=== PATIENT | female | born 1980 ===

== ENCOUNTER 2016-07-22 07:38 | Emergency (ER) | payer MEDICAID ==
[2016-07-22 07:47] VITALS: BP 161/100; PULSE 96; RESP 16; TEMP 99.1; O2SAT 98; BMI 52.2
--- NOTE | 2016-07-22 07:54 | ED PDOC ---
Arrival/HPI - General Chief Complaint: Female Genitourinary Time Seen by Provider: 07/22/16 07:43 Historian: Patient - History of Present Illness Narrative History of Present Illness (Text): 07/22/16 07:47 Jaquelin Herrera is a 35 year old female, occasional smoker & drinker, no drugs , who presents to the emergency department for persistent vaginal bleeding for the last 5 months. Patient reports her LNMP was in March and she has been having strange bleeding since. She reports she was seen at the OB 3 weeks ago, where blood and urine tests were done. She was given a "white pill" for 14 days which she just finished. Patient otherwise denies any fever, chills, abdominal pain, nausea, vomiting, diarrhea, vaginal discharge, urinary symptoms, back pain , or any other complaints. PMD: None reported. Associated Symptoms (Text): 07/22/16 08:06 Last normal menstrual period was in March of this year. She has had strange bleeding ever since then. She's been bleeding for the last month straight. She was seen by her DYE RANGE TENDER approximately 3 weeks ago. She had blood and urine testing done then. She was put on a medication for 14 days, but has continued to bleed. She is scheduled for an ultrasound next week. No abdominal pain nausea vomiting diarrhea constipation or GI bleeding. No vaginal discharge. No dysuria frequency urgency or hematuria. Fever or chills. No injury or trauma. No chest pain palpitations or dyspnea. No dizziness or lightheadedness. Past Medical History - Provider Review Nursing Documentation Reviewed: Yes - Infectious Disease Hx of Infectious Diseases: None - Tetanus Immunization Tetanus Immunization: Unknown - Past Medical History Past Medical History: No Previous - Psychiatric Hx Psychophysiologic Disorder: No Hx Depression: No Hx Emotional Abuse: No Hx Physical Abuse: No Hx Substance Use: No - Surgical History Hx Section: Yes Hx Cholecystectomy: Yes - Anesthesia Hx Anesthesia: Yes Hx Anesthesia Reactions: No Hx Malignant Hyperthermia: No - Suicidal Assessment Feels Threatened In Home Enviroment: No Family/Social History - Physician Review Nursing Documentation Reviewed: Yes Family/Social History: No Known Family HX Smoking Status: Light Smoker < 10 Cigarettes Daily Hx Alcohol Use: No Hx Substance Use: No Hx Substance Use Treatment: No Allergies/Home Meds Allergies/Adverse Reactions: Allergies No Known Allergies Allergy (Verified 07/22/16 07:47) Home Medications: Home Meds Medication Instructions Recorded Confirmed No Known Home Med 07/22/16 07/22/16 Review of Systems - Physician Review All systems were reviewed & negative as marked: Yes - Review of Systems Constitutional: Normal. absent: Fevers Respiratory: Normal. absent: SOB, Cough Cardiovascular: Normal. absent: Chest Pain Gastrointestinal: Normal. absent: Abdominal Pain, Diarrhea, Nausea, Vomiting Genitourinary Female: Vaginal Bleeding. absent: Dysuria, Frequency, Hematuria, Urine Output Changes, Vaginal Discharge Musculoskeletal: absent: Back Pain Skin: Normal Neurological: Normal Physical Exam Vital Signs Reviewed: Yes Vital Signs Temp Pulse Resp BP Pulse Ox 07/22/16 07:47 99.1 F 96 H 16 161/100 H 98 Temperature: Afebrile Blood Pressure: Hypertensive Pulse: Regular Respiratory Rate: Normal Appearance: Positive for: Well-Appearing, Non-Toxic, Comfortable, Other ( Morbidly Obese) Pain Distress: None Mental Status: Positive for: Alert and Oriented X 3 - Systems Exam Head: Present: Atraumatic, Normocephalic Pupils: Present: PERRL Extroacular Muscles: Present: EOMI Conjunctiva: Present: Normal Mouth: Present: Moist Mucous Membranes Neck: Present: Normal Range of Motion Respiratory/Chest: Present: Clear to Auscultation, Good Air Exchange. No: Respiratory Distress, Accessory Muscle Use Cardiovascular: Present: Regular Rate and Rhythm, Normal S1, S2. No: Murmurs Abdomen: Present: Normal Bowel Sounds. No: Tenderness, Distention, Peritoneal Signs Back: Present: Normal Inspection Upper Extremity: Present: Normal Inspection. No: Cyanosis, Edema Lower Extremity: Present: Normal Inspection. No: Edema Neurological: Present: GCS=15, CN II-XII Intact, Speech Normal Skin: Present: Warm, Dry, Normal Color. No: Rashes Psychiatric: Present: Alert, Oriented x 3, Normal Insight, Normal Concentration Medical Decision Making ED Course and Treatment: 07/22/16 07:47 Impression: 35 year old female complaining of vaginal bleeding for the last 5 months. Plan: -- Urinalysis -- Labs -- Reassess and disposition Prior Visits: Notes and results from previous visits were reviewed. Patient was last seen in the emergency department on 04/03/16 for left knee pain. Progress Notes: 07/22/16 08:53 HCG is negative. Hemoglobin is adequate. INR is normal. Discharge home to follow -up with [facility]. Ultrasound as already scheduled next week. Follow up in ER as needed - Lab Interpretations Lab Results: 07/22/16 08:12 Lab Results 07/22/16 08:15: Urine Color Light brown, Urine Appearance Cloudy, Urine pH 6.0, Ur Specific [place] 1.025, Urine Protein 30 H, Urine Glucose (UA) Negative, Urine Ketones Negative, Urine Blood Large H, Urine Nitrate Negative, Urine Bilirubin Negative, Urine Urobilinogen 0.2, Ur Leukocyte Esterase Negative, Urine RBC Tntc, Urine WBC 0 - 2, Ur Epithelial Cells 0 - 2, Urine Bacteria Few, Urine HCG, Qual Negative 07/22/16 08:12: WBC 11.1 H, RBC 4.39, Hgb 10.7 L, Hct 32.7 L, MCV 74.5 L, MCH 24.4 L, MCHC 32.7, RDW 14.8 H, Plt Count 498 H, MPV 8.6, Gran % 71.3 H, Lymph % (Auto) 20.2 L, [place] % (Auto) 7.0 H, Eos % (Auto) 1.1 L, Baso % (Auto) 0.4, Gran # 7.90 H, Lymph # 2.2, [place] # 0.8 H, Eos # 0.1, Baso # 0.04 I have reviewed the lab results: Yes - Scribe Statement The provider has reviewed the documentation as recorded by the Kennedy Go Provider Attestation: All medical record entries made by the Jannaibkym were at my direction and personally dictated by me. I have reviewed the chart and agree that the record accurately reflects my personal performance of the history, physical exam, medical decision making, and the department course for this patient. I have also personally directed, reviewed, and agree with the discharge instructions and disposition. Disposition/Present on Arrival - Present on Arrival Any Indicators Present on Arrival: No History of DVT/PE: No History of Uncontrolled Diabetes: No Urinary Catheter: No History of Decub. Ulcer: No History Surgical Site Infection Following: None - Disposition Have Diagnosis and Disposition been Completed?: Yes Diagnosis: Menometrorrhagia Disposition: HOME/ ROUTINE Disposition Time: 08:54 Patient Plan: Discharge Condition: GOOD Discharge Instructions (ExitCare): Menorrhagia (ED) Additional Instructions: Follow-up with [facility]. Keep ultrasound appointment. Follow up in ER as needed.
[2016-07-22 08:25] LABS: URINE BILIRUBIN NEGATIVE (NEGATIVE); URINE BLOOD LARGE (NEGATIVE); URINE GLUCOSE (UA) NEGATIVE (NEGATIVE); URINE KETONE NEGATIVE (NEGATIVE); URINE LEUKOCYTE ESTERASE NEGATIVE Leu/uL (NEGATIVE); URINE PROTEIN 30 mg/dL (<30 mg/dL); URINE UROBILINOGEN 0.2 E.U./dL (<1 E.U./dL)
[2016-07-22 08:27] LABS: ADD MANUAL DIFF? NO
[2016-07-22 08:28] LABS: URINE APPEARANCE CLOUDY (CLEAR); URINE COLOR LIGHT BROWN (YELLOW)
[2016-07-22 08:29] LABS: BASO # 0.04 K/mm3 (0.0-2.0); BASO % 0.4 % (0.0-3.0); EOS # 0.1 (0.0-0.7); EOS % 1.1 % (1.5-5.0); GRAN % 71.3 % (50.0-68.0); HEMATOCRIT 32.7 % (36.0-48.0); LYMPH # 2.2 (1.2-3.4); LYMPH % 20.2 % (22.0-35.0); MEAN CELL VOLUME 74.5 fL (80.0-105.0); MEAN CORPUSCULAR HEMOGLOBIN 24.4 pg (25.0-35.0); MEAN CORPUSCULAR HGB CONC 32.7 g/dl (31.0-37.0); MEAN PLATELET VOLUME 8.6 fl (7.0-11.0); MONO # 0.8 (0.1-0.6); PLATELET COUNT 498 10^3/uL (120.0-450.0); RED CELL DISTRIBUTION WIDTH 14.8 % (11.5-14.5); WHITE BLOOD COUNT 11.1 10^3/ul (4.5-11.0)
[2016-07-22 08:30] LABS: URINE BACTERIA FEW (NEG); URINE EPITHELIAL CELLS 0 - 2 /hpf (0-5); URINE RBC TNTC /hpf (0-2); URINE WBC 0 - 2 /hpf (0-6)
[2016-07-22 08:39] LABS: INR 0.94 (0.93-1.08); PARTIAL THROMBOPLASTIN TIME 29.1 Seconds (23.7-30.8)
== END 2016-07-22 09:07 | disposition home or self-care (01) ==
LOC: ED 07:38
DX: N92.1 Excessive and frequent menstruation with irregular cycle (principal)

== ENCOUNTER 2017-03-02 06:01 | Emergency (ER) | payer MEDICAID ==
[2017-03-02 06:56] VITALS: BMI 51.3
[2017-03-02 07:03] VITALS: O2SAT 99
[2017-03-02] MEDS ORDERED: Lidocaine 1%/Epinephrine 1:100000 30 ml vial IJ STA (07:30)
--- NOTE | 2017-03-02 07:30 | ED PDOC ---
Arrival/HPI - General Chief Complaint: Female Genitourinary Time Seen by Provider: 03/02/17 07:27 Historian: Patient - History of Present Illness Narrative History of Present Illness (Text): 03/02/17 07:27 A 36 year old female, who denies any past medical history, presents to the emergency department complaining of an abscess on her labia for 2 days. Patient reports her pain has worsened since. She notes experiencing similar symptoms prior. Patient denies fever or any other complaints. Time/Duration: Other ( 2 days) Symptom Course: Intermittent Quality: Other Context: Home Past Medical History - Provider Review Nursing Documentation Reviewed: Yes - Infectious Disease Hx of Infectious Diseases: None - Tetanus Immunization Tetanus Immunization: Unknown - Past Medical History Past Medical History: No Previous - Cardiac Hx Cardiac Disorders: No - Pulmonary Hx Respiratory Disorders: No - Neurological Hx Neurological Disorder: No - HEENT Hx HEENT Disorder: No - Renal Hx Renal Disorder: No - Endocrine/Metabolic Hx Endocrine Disorders: No - Hematological/Oncological Hx Blood Disorders: No - Integumentary Hx Dermatological Disorder: No - Musculoskeletal/Rheumatological Hx Musculoskeletal Disorders: No - Gastrointestinal Hx Gastrointestinal Disorders: No - Genitourinary/Gynecological Hx Genitourinary Disorders: No - Psychiatric Hx Psychophysiologic Disorder: No Hx Depression: No Hx Emotional Abuse: No Hx Physical Abuse: No Hx Substance Use: No - Surgical History Hx Section: Yes Hx Cholecystectomy: Yes - Anesthesia Hx Anesthesia: Yes Hx Anesthesia Reactions: No Hx Malignant Hyperthermia: No - Suicidal Assessment Feels Threatened In Home Enviroment: No Family/Social History - Physician Review Nursing Documentation Reviewed: Yes Family/Social History: No Known Family HX Smoking Status: Light Smoker < 10 Cigarettes Daily Hx Alcohol Use: No Hx Substance Use: No Hx Substance Use Treatment: No Allergies/Home Meds Allergies/Adverse Reactions: Allergies No Known Allergies Allergy (Verified 03/02/17 06:56) Review of Systems - Physician Review All systems were reviewed & negative as marked: Yes - Review of Systems Constitutional: absent: Fevers Genitourinary Female: Other (Abscess on labia) Physical Exam Vital Signs Reviewed: Yes Vital Signs Temp Pulse Resp BP Pulse Ox 03/02/17 09:39 98 F 75 20 131/72 99 03/02/17 08:54 97.8 F 03/02/17 07:02 98.4 F 92 H 18 154/83 H 99 Temperature: Afebrile Blood Pressure: Hypertensive Pulse: Tachycardic Respiratory Rate: Normal Appearance: Positive for: Well-Appearing, Non-Toxic, Comfortable Pain Distress: None Mental Status: Positive for: Alert and Oriented X 3 - Systems Exam Head: Present: Atraumatic, Normocephalic Pupils: Present: PERRL Extroacular Muscles: Present: EOMI Conjunctiva: Present: Normal Genitourinary/Pelvic Exam: Present: Other (2 cm right labial abscess with small amount of purulent drainage) Neurological: Present: GCS=15, CN II-XII Intact, Speech Normal Skin: Present: Warm, Dry, Normal Color. No: Rashes Psychiatric: Present: Alert, Oriented x 3, Normal Insight, Normal Concentration Medical Decision Making ED Course and Treatment: 03/02/17 08:59 Procedure: Incision & Drainage Performed by the emergency provider, chaperoned by scribe Indication: Abscess Location: Right labia Preparation: The area was prepped and draped in the usual sterile fashion and was cleansed. Local infiltration of Lidocaine 1% with epinephrine was used for anesthesia. Procedure: The most fluctuant portion of the abscess was incised with a #11 scalpel. Approximately 3 mL of purulent drainage was obtained. Post-Procedure: On exam the abscess is notably less fluctuant. The patient tolerated the procedure well, and there were no complications. Cultured: Yes I have discussed the plan with the patient, who expresses understanding. Patient in agreement with plan to be discharged home. Patient is stable for discharge. Patient was instructed to follow up with obgyn or return if symptoms worsen or new concerning symptoms arise. - Lab Interpretations Microbiology Results: Microbiology Results 03/02/17 09:00 Abscess - Abscess Gram Stain - Preliminary 03/02/17 09:00 Abscess - Abscess Wound Culture - Preliminary NO GROWTH AFTER 24 HOURS - Medication Orders Current Medication Orders: Discontinued Medications Acetaminophen (Tylenol 325mg Tab) 975 mg PO STAT STA Stop: 03/02/17 07:31 Last Admin: 03/02/17 08:54 Dose: 975 mg MAR Pain/Vitals Document 03/02/17 08:54 GMI (Rec: 03/02/17 08:55 GMI [id number]) Pain Reassessment Is This A Pain ReAssessment? Yes Sleep Is patient sleeping during reassessment? No Presence of Pain Presence of Pain Yes Pain Scale Used Pain Scale Used Numeric Location Pain Location Body Site perineum Description Constant Pressure Sharp Intensity 8 Scale Used Numeric Pain Behavior Facial Grimacing Vitals Temperature (97.6 F-99.6 F) 97.8 F Temperature Source Oral Ibuprofen (Motrin Tab) 800 mg PO STAT STA Stop: 03/02/17 07:31 Last Admin: 03/02/17 08:54 Dose: 800 mg Lidocaine/Epinephrine (Lidocaine 1%/Epinephrine 1:287441 30 Ml) 20 ml IJ STAT STA Stop: 03/02/17 07:31 Last Admin: 03/02/17 08:55 Dose: 3 ml - Scribe Statement The provider has reviewed the documentation as recorded by the Jannaibkym Rivera Provider Scribe Attestation: All medical record entries made by the Scribe were at my direction and personally dictated by me. I have reviewed the chart and agree that the record accurately reflects my personal performance of the history, physical exam, medical decision making, and the department course for this patient. I have also personally directed, reviewed, and agree with the discharge instructions and disposition. Disposition/Present on Arrival - Present on Arrival Any Indicators Present on Arrival: No History of DVT/PE: No History of Uncontrolled Diabetes: No Urinary Catheter: No History of Decub. Ulcer: No History Surgical Site Infection Following: None - Disposition Have Diagnosis and Disposition been Completed?: Yes Diagnosis: Labial abscess Disposition: HOME/ ROUTINE Disposition Time: 08:59 Condition: GOOD Discharge Instructions (ExitCare): Abscess Incision and Drainage (ED), Bartholin Cyst (ED) Additional Instructions: Please follow up with your OBGYN doctor. Keep the wound clean with soap and water. Return to the ER for any worsening symptoms, fever, or for any other concerns. Prescriptions: Sulfamethoxazole/Trimethoprim [Bactrim DS 800 mg-160 mg] 1 tab PO BID #10 tab Forms: [facility] (Paraguayan), WORK NOTE
[2017-03-02 09:39] VITALS: BP 131/72; PULSE 75; RESP 20; TEMP 98
== END 2017-03-02 09:41 | disposition home or self-care (01) ==
LOC: ED 06:01
DX: N76.4 Abscess of vulva (principal)

== ENCOUNTER 2018-01-23 06:32 | Emergency (ER) | payer MEDICAID ==
[2018-01-23 06:41] VITALS: BMI 53.1
[2018-01-23] MEDS ORDERED: Sodium Chloride 0.9% 1,000 ML IV STA ×2 (07:49→09:58)
[2018-01-23] MEDS ORDERED: Alum-Mag Hydrox-Simethicone Susp (30 mL) PO STA (07:49)
[2018-01-23] MEDS ORDERED: Atrop/Hyosc/Scopal/PB Elixir (120 ml) PO STA (07:50)
--- NOTE | 2018-01-23 07:58 | ED PDOC ---
Arrival/HPI - General Chief Complaint: Abdominal Pain Historian: Patient - History of Present Illness Narrative History of Present Illness (Text): 01/23/18 07:54 37 year old female w/ PMH of cholecystectomy, presents to the emergency department with lower abdominal pain with associated nausea since this morning. Patient states she woke up & felt she needed to release her bowels. She states she had non-bloody watery diarrhea with worsening of her abdominal pain suddenly worsened upon evacuation of her bowels. Patient denies any fevers, chills, vomiting, back pain, neck pain, urinary/bowel changes, vaginal bleeding/discharge, or any other complaint. Time/Duration: 1-3 hours Symptom Course: Unchanged Severity Level: Moderate Context: Home Past Medical History - Provider Review Nursing Documentation Reviewed: Yes - Travel History Have you recently traveled outside [place] w/in the past 3 mons?: No - Infectious Disease Hx of Infectious Diseases: None - Tetanus Immunization Tetanus Immunization: Unknown - Past Medical History Past Medical History: No Previous - Cardiac Hx Cardiac Disorders: No - Pulmonary Hx Respiratory Disorders: No - Neurological Hx Neurological Disorder: No - HEENT Hx HEENT Disorder: No - Renal Hx Renal Disorder: No - Endocrine/Metabolic Hx Endocrine Disorders: No - Hematological/Oncological Hx Blood Disorders: No - Integumentary Hx Dermatological Disorder: No - Musculoskeletal/Rheumatological Hx Musculoskeletal Disorders: No - Gastrointestinal Hx Gastrointestinal Disorders: No - Genitourinary/Gynecological Hx Genitourinary Disorders: No - Psychiatric Hx Psychophysiologic Disorder: No Hx Depression: No Hx Emotional Abuse: No Hx Physical Abuse: No Hx Substance Use: No - Surgical History Hx Section: Yes (x2) Hx Cholecystectomy: Yes - Anesthesia Hx Anesthesia: Yes Hx Anesthesia Reactions: No Hx Malignant Hyperthermia: No - Suicidal Assessment Feels Threatened In Home Enviroment: No Family/Social History - Physician Review Nursing Documentation Reviewed: Yes Family/Social History: No Known Family HX Smoking Status: Light Smoker < 10 Cigarettes Daily Hx Alcohol Use: No Hx Substance Use: No Hx Substance Use Treatment: No Allergies/Home Meds Allergies/Adverse Reactions: Allergies No Known Allergies Allergy (Verified 01/24/18 06:17) Review of Systems - Physician Review All systems were reviewed & negative as marked: Yes - Review of Systems Constitutional: absent: Fevers, Night Sweats Gastrointestinal: Abdominal Pain, Stool Changes, Diarrhea, Nausea. absent: Constipation, Vomiting Genitourinary Female: absent: Urine Output Changes, Vaginal Bleeding, Vaginal Discharge Musculoskeletal: absent: Back Pain, Neck Pain Physical Exam Vital Signs Reviewed: Yes Vital Signs Pulse Resp BP Pulse Ox 01/23/18 06:46 97 H 18 102/102 H 99 Blood Pressure: Hypertensive Pulse: Regular Respiratory Rate: Normal Appearance: Positive for: Well-Appearing, Non-Toxic, Comfortable Pain Distress: None Mental Status: Positive for: Alert and Oriented X 3 - Systems Exam Head: Present: Atraumatic, Normocephalic Pupils: Present: PERRL Extroacular Muscles: Present: EOMI Conjunctiva: Present: Normal Mouth: Present: Moist Mucous Membranes Neck: Present: Normal Range of Motion Respiratory/Chest: Present: Clear to Auscultation, Good Air Exchange. No: Respiratory Distress, Accessory Muscle Use Cardiovascular: Present: Regular Rate and Rhythm, Normal S1, S2. No: Murmurs Abdomen: Present: Tenderness (suprapubic tenderness w/ slightly palpable bulge near the periumbilical region), Distention. No: Peritoneal Signs Back: Present: Normal Inspection. No: CVA Tenderness Upper Extremity: Present: Normal Inspection. No: Cyanosis, Edema Lower Extremity: Present: Normal Inspection. No: Edema Neurological: Present: GCS=15, CN II-XII Intact, Speech Normal Skin: Present: Warm, Dry, Normal Color. No: Rashes Psychiatric: Present: Alert, Oriented x 3, Normal Insight, Normal Concentration Medical Decision Making ED Course and Treatment: 01/23/18 08:13 Impression: 37 year old female presents with lower abdominal pain. Plan: -- Labs -- Chest X-ray -- Maalox -- -- Pepcid -- Reglan -- Urinalysis -- CT a/p -- Reassess and disposition Prior Visits: Notes and results from previous visits were reviewed. Progress Notes: 01/23/18 08:37 Leukocytosis of 13 noted on labs. UA, chemistries and US pending. 01/23/18 09:52 UA negative with chemistries unremarkable. US changed to CT a/p. 01/23/18 09:59 Patient reassessed with little alleviation in pain. Toradol ordered. CT a/p pending. 01/23/18 11:28 CT a/p show an umbilical hernia with no evidence of obstruction. ceo and president called. Patient updated on imaging findings, reporting improvement in symptoms. 01/23/18 11:48 ceo and president evaluating patient at the bedside who was able to successfully reduce hernia. She advised patient to follow up with surgeon in 2 weeks. Patient demonstrates understanding and will follow up. She is stable for discharge. - RAD Interpretation Narrative RAD Interpretations (Text): 01/23/18 09:17 Chest X-ray reviewed, shows: No active disease 01/23/18 11:41 CT abdomen and pelvis reviewed, shows: There is a moderate size umbilical hernia containing peritoneal fluid and a segment of small bowel. There is no associated obstruction. The hernia sac measures 65 x 46 by 53 mm. There are no acute intra-abdominal findings Radiology Orders: 01/23/18 07:49 CHEST PORTABLE [RAD] Stat ABDOMEN COMPLETE [US] Stat Musical Instrument Maker Or Repairer: Radiologist - Medication Orders Current Medication Orders: Sodium Chloride (Sodium Chloride 0.9%) 1,000 mls @ 1,000 mls/hr IV .Q1H STA Stop: 01/23/18 08:48 Discontinued Medications Al Hydrox/Mg Hydrox/Simethicone (Maalox Plus 30 Ml) 30 ml PO STAT STA Stop: 01/23/18 07:50 Belladonna/Phenobarbital ( Elixir) 5 ml PO STAT STA Stop: 01/23/18 07:51 Famotidine (Pepcid) 20 mg IVP STAT STA Stop: 01/23/18 07:50 Metoclopramide HCl (Reglan) 10 mg IVP STAT STA Stop: 01/23/18 07:50 - Scribe Statement The provider has reviewed the documentation as recorded by the Kennedy Cordova Provider Scribe Attestation: All medical record entries made by the Jannaibkym were at my direction and personally dictated by me. I have reviewed the chart and agree that the record accurately reflects my personal performance of the history, physical exam, medical decision making, and the department course for this patient. I have also personally directed, reviewed, and agree with the discharge instructions and disposition. Disposition/Present on Arrival - Present on Arrival Any Indicators Present on Arrival: No History of DVT/PE: No History of Uncontrolled Diabetes: No Urinary Catheter: No History of Decub. Ulcer: No History Surgical Site Infection Following: None - Disposition Have Diagnosis and Disposition been Completed?: Yes Diagnosis: Umbilical hernia Disposition: HOME/ ROUTINE Disposition Time: 11:30 Patient Plan: Discharge Condition: STABLE Discharge Instructions (ExitCare): Abdominal Hernia (DC), Umbilical Hernia, Adult Print Language: PORTUGUESE Additional Instructions: All medical record entries made by the Scribe were at my direction and personally dictated by me. I have reviewed the chart and agree that the record accurately reflects my personal performance of the history, physical exam, medical decision making, and the department course for this patient. I have also personally directed, reviewed, and agree with the discharge instructions and disposition. Referrals: Erlin Solis MD [Staff Provider] - Follow up with primary Forms: [employer] (Serbian)
[2018-01-23 08:08] LABS: BASO # 0.03 K/mm3 (0.0-2.0); BASO % 0.2 % (0.0-3.0); EOS # 0.1 (0.0-0.7); EOS % 0.9 % (1.5-5.0); GRAN # 9.81 (1.4-6.5); GRAN % 71.1 % (50.0-68.0); HEMOGLOBIN 10.8 g/dL (12.0-16.0); LYMPH % 21.9 % (22.0-35.0); MEAN CELL VOLUME 71.6 fl (80.0-105.0); MEAN CORPUSCULAR HGB CONC 30.8 g/dl (31.0-37.0); MEAN PLATELET VOLUME 8.9 fl (7.0-11.0); MONO # 0.8 (0.1-0.6); MONO % 5.9 % (1.0-6.0); RBC 4.9 10^6/uL (3.5-6.1); WHITE BLOOD COUNT 13.8 10^3/uL (4.5-11.0)
[2018-01-23 08:25] LABS: URINE BILIRUBIN NEGATIVE (NEGATIVE); URINE BLOOD TRACE-INTACT (NEGATIVE); URINE GLUCOSE (UA) NEGATIVE (NEGATIVE); URINE LEUKOCYTE ESTERASE NEGATIVE Leu/uL (NEGATIVE); URINE PROTEIN NEGATIVE mg/dL (<30 mg/dL); URINE UROBILINOGEN 0.2 E.U./dL (<1 E.U./dL)
[2018-01-23 08:26] LABS: URINE APPEARANCE CLEAR (CLEAR); URINE COLOR YELLOW (YELLOW)
[2018-01-23 08:42] LABS: URINE AMORPHOUS SEDIMENT SMALL; URINE RBC 0 - 2 /hpf (0-2); URINE WBC 0 - 2 /hpf (0-6)
[2018-01-23 08:57] LABS: ALB/GLOB RATIO 1.1 (1.1-1.8); ALBUMIN 4.1 g/dL (3.0-4.8); ALT/SGPT 22 U/L (7-56); AST/SGOT 25 U/L (14-36); BLOOD UREA NITROGEN 10 mg/dL (7-21); CALCIUM 9.1 mg/dL (8.4-10.5); GFR NON-AFRICAN AMERICAN > 60; LIPASE 43 U/L (23-300)
--- NOTE | 2018-01-23 09:15 | RAD ---
Date of service: 01/23/2018 HISTORY: abdominal pain COMPARISON: No prior. FINDINGS: LUNGS: No active pulmonary disease. PLEURA: No significant pleural effusion identified, no pneumothorax apparent. CARDIOVASCULAR: No aortic atherosclerotic calcification present. Mild to moderate cardiomegaly no pulmonary vascular congestion. OSSEOUS STRUCTURES: No significant abnormalities. VISUALIZED UPPER ABDOMEN: Normal. OTHER FINDINGS: None. IMPRESSION: No active disease.
--- NOTE | 2018-01-23 11:21 | CT ---
Date of service: 01/23/2018 PROCEDURE: CT Abdomen and Pelvis with contrast HISTORY: abdominal pain COMPARISON: None. TECHNIQUE: Contrast dose: 150 cc of Omni 350 Radiation dose: Total exam DLP = 1469.39 mGy-cm. This CT exam was performed using one or more of the following dose reduction techniques: Automated exposure control, adjustment of the mA and/or kV according to patient size, and/or use of iterative reconstruction technique. FINDINGS: LOWER THORAX: Unremarkable. LIVER: Unremarkable. No gross lesion or ductal dilatation. GALLBLADDER AND BILE DUCTS: Gallbladder removed PANCREAS: Unremarkable. No gross lesion or ductal dilatation. SPLEEN: Unremarkable. ADRENALS: Unremarkable. No mass. KIDNEYS AND URETERS: Unremarkable. No hydronephrosis. No solid mass. VASCULATURE: Unremarkable. No aortic aneurysm. No aortic atherosclerotic calcification or mural plaque present. BOWEL: Unremarkable. No obstruction. No gross mural thickening. APPENDIX: Normal appendix. PERITONEUM: There is a moderate size umbilical hernia containing peritoneal fluid and a segment of small bowel. There is no associated obstruction. The hernia sac measures 65 x 46 by 53 mm. LYMPH NODES: Unremarkable. No enlarged lymph nodes. BLADDER: Unremarkable. REPRODUCTIVE: Unremarkable. BONES: No acute fracture. OTHER FINDINGS: None. IMPRESSION: There is a moderate size umbilical hernia containing peritoneal fluid and a segment of small bowel. There is no associated obstruction. The hernia sac measures 65 x 46 by 53 mm. There are no acute intra-abdominal findings
[2018-01-23 12:20] VITALS: BP 120/82; PULSE 75; RESP 19; TEMP 98; O2SAT 100
== END 2018-01-23 12:25 | disposition home or self-care (01) ==
LOC: ED 06:32
DX: K42.9 Umbilical hernia without obstruction or gangrene (principal); Z90.49 Acquired absence of other specified parts of digestive tract
CPT/HCPCS: 71045; 74177; 80053; 81001; 83690; 83735; 85025; 96361; 96374; 96375; 99284; J1885; J2765; J7030; Q9967

== ENCOUNTER 2018-01-24 06:14 | Inpatient (IN) | payer MEDICAID ==
[2018-01-24 06:15] VITALS: BMI 53.1
[2018-01-24] MEDS ORDERED: Morphine 4 mg/ml ISec IVP STA (07:00)
[2018-01-24] MEDS ORDERED: Sodium Chloride 0.9% 1,000 ML IV STA ×2 (07:00→08:45)
--- NOTE | 2018-01-24 07:00 | ED PDOC ---
Arrival/HPI - General Chief Complaint: Abdominal Pain - History of Present Illness Narrative History of Present Illness (Text): 37 y/o F s/p C section x 2 presenting to the Emergency Room for persistent abdominal pain that began since this morning. She reports the pain as localized to the periumbilical area with associated nausea and non-bloody, non-bilious emesis. The patient is unable to tolerate PO intake and reports being unable to pass a bowel movement for the last 24 hours. Of note, the patient was [place] [facility] [place] similar complaint and was discovered to have a moderate, umbilical hernia with no evidence of obstruction/strangulation. She was seen by surgery and cleared for outpatient follow-up. PCP: Dr. Muñiz Time/Duration: Prior to Arrival Symptom Onset: Sudden Symptom Course: Worsening Quality: Pressure Severity Level: Moderate Activities at Onset: Rest Context: Home Past Medical History - Provider Review Nursing Documentation Reviewed: Yes - Travel History Have you recently traveled outside [place] w/in the past 3 mons?: No - Infectious Disease Hx of Infectious Diseases: None - Tetanus Immunization Tetanus Immunization: Unknown - Past Medical History Past Medical History: No Previous - Cardiac Hx Cardiac Disorders: No - Pulmonary Hx Respiratory Disorders: No - Neurological Hx Neurological Disorder: No - HEENT Hx HEENT Disorder: No - Renal Hx Renal Disorder: No - Endocrine/Metabolic Hx Endocrine Disorders: No - Hematological/Oncological Hx Blood Disorders: No - Integumentary Hx Dermatological Disorder: No - Musculoskeletal/Rheumatological Hx Musculoskeletal Disorders: No - Gastrointestinal Hx Gastrointestinal Disorders: No - Genitourinary/Gynecological Hx Genitourinary Disorders: No - Psychiatric Hx Psychophysiologic Disorder: No Hx Depression: No Hx Emotional Abuse: No Hx Physical Abuse: No Hx Substance Use: No - Surgical History Hx Section: Yes (x2) Hx Cholecystectomy: Yes - Anesthesia Hx Anesthesia: Yes Hx Anesthesia Reactions: No Hx Malignant Hyperthermia: No - Suicidal Assessment Feels Threatened In Home Enviroment: No Family/Social History - Physician Review Nursing Documentation Reviewed: Yes Family/Social History: Unknown Family HX Smoking Status: Light Smoker < 10 Cigarettes Daily Hx Alcohol Use: No Hx Substance Use: No Hx Substance Use Treatment: No Allergies/Home Meds Allergies/Adverse Reactions: Allergies No Known Allergies Allergy (Verified 01/24/18 06:17) Review of Systems - Physician Review All systems were reviewed & negative as marked: Yes - Review of Systems Constitutional: absent: Fevers Respiratory: absent: SOB, Cough Cardiovascular: absent: Chest Pain, Palpitations Gastrointestinal: Abdominal Pain, Stool Changes, Constipation, Nausea, Vomiting. absent: Diarrhea, Appetite Changes Skin: absent: Rash, Skin Lesions Neurological: absent: Headache, Dizziness Physical Exam Vital Signs Reviewed: Yes Vital Signs Temp Pulse Resp BP Pulse Ox 01/24/18 06:21 99 F 96 H 16 141/90 99 Temperature: Afebrile Blood Pressure: Normal Pulse: Regular Respiratory Rate: Normal Appearance: Positive for: Non-Toxic, Uncomfortable Mental Status: Positive for: Alert and Oriented X 3 - Systems Exam Head: Present: Atraumatic, Normocephalic Pupils: Present: PERRL Extroacular Muscles: Present: EOMI Conjunctiva: Present: Normal Mouth: Present: Moist Mucous Membranes Neck: Present: Normal Range of Motion Respiratory/Chest: Present: Clear to Auscultation, Good Air Exchange. No: Respiratory Distress, Accessory Muscle Use Cardiovascular: Present: Regular Rate and Rhythm, Normal S1, S2. No: Murmurs Abdomen: Present: Tenderness, Distention, Hernias (Palpable periumbilical hernia present) Upper Extremity: Present: Normal Inspection, Capillary Refill < 2s. No: Cyanosis, Edema Lower Extremity: Present: Normal Inspection. No: Edema Neurological: Present: GCS=15, CN II-XII Intact, Speech Normal Skin: Present: Warm, Dry, Normal Color. No: Rashes Psychiatric: Present: Alert, Oriented x 3, Normal Insight, Normal Concentration Medical Decision Making ED Course and Treatment: 01/24/18 07:07 Impression 37 y/o F w/ umbilical hernia presenting with abdominal pain, nausea/emesis & decreased flatus Differential Diagnoses Include But Are Not Limited To: Incarcerated/strangulated hernia Volvulus Appendicitis Pancreatitis Plan --Labs --IV Fluids --Upreg/UA --Surgery Consult --CXR --Morphine --Reassess & disposition Progress Notes 01/24/18 07:44 Labs reviewed with leukocytosis noted to trend upwards from 13 to 18.5 today. Pending UA. Call placed to surgery resident. 01/24/18 08:44 Surgery resident at the bedside states her attending, Dr. Mcneal(surgery) will come to evaluate patient. Patient to be kept NPO. 01/24/18 1611 Patient noted to be laying comfortably in bed. Spoke to surgery resident who states surgical team would like to keep patient NPO and placed on observation for the night. She will be reassessed in the morning. - RAD Interpretation Narrative RAD Interpretations (Text): 01/24/18 08:15 Chest X-ray reviewed by radiologist, shows: FINDINGS: Examination limited by habitus. LUNGS: No focal consolidation. Please note that chest x-ray has limited sensitivity for the detection of pulmonary masses. PLEURA: No significant pleural effusion identified. No definite pneumothorax . CARDIOVASCULAR: Cardiomegaly. No significant atherosclerotic calcification present. OSSEOUS STRUCTURES: No acute osseous abnormality identified. VISUALIZED UPPER ABDOMEN: Unremarkable. OTHER FINDINGS: None. IMPRESSION: No focal consolidation. Cardiomegaly. 01/24/18 14:00 CT of Abdomen/Pelvis reviewed by radiologist, shows: FINDINGS: LOWER THORAX: Unremarkable. LIVER: Unremarkable. No gross lesion or ductal dilatation. GALLBLADDER AND BILE DUCTS: Gallbladder removed PANCREAS: Unremarkable. No gross lesion or ductal dilatation. SPLEEN: Unremarkable. ADRENALS: Unremarkable. No mass. KIDNEYS AND URETERS: Unremarkable. No hydronephrosis. No solid mass. VASCULATURE: Unremarkable. No aortic aneurysm. No aortic atherosclerotic calcification or mural plaque present. BOWEL: There are multiple mildly dilated loops of small bowel. This could represent ileus. There is a small umbilical hernia the contains fat and a small amount of fluid. There is no herniation of bowel loops. APPENDIX: Unremarkable. Normal appendix. PERITONEUM: Unremarkable. No free fluid. No free air. LYMPH NODES: Unremarkable. No enlarged lymph nodes. BLADDER: Unremarkable. REPRODUCTIVE: Unremarkable. BONES: No acute fracture. OTHER FINDINGS: None. IMPRESSION: There are multiple mildly dilated loops of small bowel. This could represent ileus. There is a small umbilical hernia that contains fat and a small amount of fluid. There is no herniation of bowel loops. Supervisor Safety [place]: Radiologist - EKG Interpretation EKG Interpretation (Text): 01/24/18 8:34 EKG reviewed by me, shows NSR @79 bpm. No t-wave inversions. Interpreted by ED Physician: Yes Type: 12 lead EKG Disposition/Present on Arrival - Present on Arrival Any Indicators Present on Arrival: No History of DVT/PE: No History of Uncontrolled Diabetes: No Urinary Catheter: No History of Decub. Ulcer: No History Surgical Site Infection Following: None - Disposition Have Diagnosis and Disposition been Completed?: Yes Diagnosis: Abdominal pain Disposition: HOSPITALIZED Disposition Time: 16:20 Patient Plan: Observation Condition: STABLE
[2018-01-24 07:11] LABS: BASO # 0.02 K/mm3 (0.0-2.0); BASO % 0.1 % (0.0-3.0); GRAN % 92.3 % (50.0-68.0); LYMPH # 1.1 (1.2-3.4); LYMPH % 5.7 % (22.0-35.0); MEAN CELL VOLUME 70.5 fl (80.0-105.0); MEAN CORPUSCULAR HEMOGLOBIN 22.4 pg (25.0-35.0); MEAN CORPUSCULAR HGB CONC 31.8 g/dl (31.0-37.0); MEAN PLATELET VOLUME 8.7 fl (7.0-11.0); MONO # 0.4 (0.1-0.6); MONO % 1.9 % (1.0-6.0); PLATELET COUNT 550 10^3/uL (120.0-450.0); RBC 5.35 10^6/uL (3.5-6.1); WHITE BLOOD COUNT 18.5 10^3/uL (4.5-11.0)
[2018-01-24 07:24] LABS: ALBUMIN 4.5 g/dL (3.0-4.8); ALT/SGPT 33 U/L (7-56); AST/SGOT 40 U/L (14-36); BLOOD UREA NITROGEN 9 mg/dL (7-21); CALCIUM 9.2 mg/dL (8.4-10.5); GFR NON-AFRICAN AMERICAN > 60; LIPASE 34 U/L (23-300)
[2018-01-24 07:24] LABS: VENOUS BLOOD GAS BASE EXCESS 0.5 mmol/L (0.0-2.0); VENOUS BLOOD GAS PO2 37 mm/Hg (30-55)
[2018-01-24 07:29] LABS: INR 1.06; PARTIAL THROMBOPLASTIN TIME 26.8 Seconds (25.1-36.5); PROTHROMBIN TIME 12.2 SECONDS (9.4-12.5)
[2018-01-24 08:11] LABS: URINE BILIRUBIN NEGATIVE (NEGATIVE); URINE BLOOD MODERATE (NEGATIVE); URINE GLUCOSE (UA) NEGATIVE (NEGATIVE); URINE LEUKOCYTE ESTERASE NEGATIVE Leu/uL (NEGATIVE); URINE PROTEIN 100 mg/dL (<30 mg/dL)
[2018-01-24 08:12] LABS: URINE APPEARANCE CLEAR (CLEAR); URINE COLOR YELLOW (YELLOW)
[2018-01-24 08:20] LABS: URINE RBC 15 - 20 /hpf (0-2)
[2018-01-24 08:21] LABS: URINE BACTERIA MANY (NEG)
[2018-01-24 08:22] LABS: BASOPHIL 1 % (0.0-1.0); LYMPHOCYTE 10 % (22.0-35.0); MONOCYTE 1 % (1.0-6.0); NEUTROPHIL 88 % (50.0-70.0)
[2018-01-24 08:23] LABS: PLATELET ESTIMATE HIGH (NORMAL)
--- NOTE | 2018-01-24 08:39 | RAD ---
HISTORY: abdominal pain COMPARISON: Chest x-ray performed 01/23/18 TECHNIQUE: Chest, one view. FINDINGS: Examination limited by habitus. LUNGS: No focal consolidation. Please note that chest x-ray has limited sensitivity for the detection of pulmonary masses. PLEURA: No significant pleural effusion identified. No definite pneumothorax . CARDIOVASCULAR: Cardiomegaly. No significant atherosclerotic calcification present. OSSEOUS STRUCTURES: No acute osseous abnormality identified. VISUALIZED UPPER ABDOMEN: Unremarkable. OTHER FINDINGS: None. IMPRESSION: No focal consolidation. Cardiomegaly.
--- NOTE | 2018-01-24 09:01 | CARD ---
APPROVED REPORT Date of service: 01/24/2018 EKG Measurement Heart [id number] <Conclusion> Normal sinus rhythm PRWP, possible ASMI age unknown
--- NOTE | 2018-01-24 09:04 | CP.PCM.CON ---
History of Present Illness - History of Present Illness History of Present Illness: Surgery: Dr. Solis CC: abdominal pain HPI: Patient is a 37 y/o female who presents with abdominal pain that started on 01/23. She describes the pain as mid-abdomen and around her belly button. The pain is sharp and unrelieved by tylenol or motrin at home. She reports associated nausea and vomiting that started last night and intolerance of food. She reports a normal bowel movement yesterday but denies passing flatus in the past 24hrs. She states the pain somewhat improved with the medication given in the ER but she remains to have discomfort in the gabriel-umbilical area. She denies noticing a bulge or worsening of the pain with lifting or moving. Patient was seen and evaluated in ER in which she underwent a CT scan with showed a nonobstructing ventral hernia with fat and bowel contents and hernia sac fluid. Patient was d/c'd home since symptoms of pain resolved with follow up instructions as outpatient. PMH: , obese PSH: x2 (5+ years ago) Medications: denies Social: denies ETOH, tobacco, or drug abuse Review of Systems - Constitutional Constitutional: absent: Anorexia, Chills, Fever - EENT Eyes: absent: Blind Spots, Blurred Vision Nose/Mouth/Throat: absent: Epistaxis, Nasal Congestion - Cardiovascular Cardiovascular: absent: Chest Pain, Dyspnea, Edema - Respiratory Respiratory: absent: Cough, Wheezing - Gastrointestinal Gastrointestinal: Abdominal Pain, Bloating, Nausea, Vomiting. absent: Cramping, Diarrhea, Dyspepsia, Excessive Flatus - Genitourinary Genitourinary: absent: Hematuria, Pyuria - Musculoskeletal Musculoskeletal: absent: Back Pain, Numbness - Integumentary Integumentary: absent: Rash, Jaundice - Neurological Neurological: absent: Dizziness, Numbness - Psychiatric Psychiatric: absent: Confusion, Depression - Endocrine Endocrine: absent: Polydipsia, Polyphagia - Hematologic/Lymphatic Hematologic: absent: Easy Bleeding, Easy Bruising Past Patient History - Infectious Disease Hx of Infectious Diseases: None - Tetanus Immunizations Tetanus Immunization: Unknown - Past Social History Smoking Status: Light Smoker < 10 Cigarettes Daily - CARDIAC Hx Cardiac Disorders: No - PULMONARY Hx Respiratory Disorders: No - NEUROLOGICAL Hx Neurological Disorder: No - HEENT Hx HEENT Problems: No - RENAL Hx Chronic Kidney Disease: No - ENDOCRINE/METABOLIC Hx Endocrine Disorders: No - HEMATOLOGICAL/ONCOLOGICAL Hx Blood Disorders: No - INTEGUMENTARY Hx Dermatological Problems: No - MUSCULOSKELETAL/RHEUMATOLOGICAL Hx Musculoskeletal Disorders: No - GASTROINTESTINAL Hx Gastrointestinal Disorders: No - GENITOURINARY/GYNECOLOGICAL Hx Genitourinary Disorders: No - PSYCHIATRIC Hx Psychophysiologic Disorder: No Hx Depression: No Hx Emotional Abuse: No Hx Physical Abuse: No Hx Substance Use: No - SURGICAL HISTORY Hx Section: Yes (x2) Hx Cholecystectomy: Yes - ANESTHESIA Hx Anesthesia: Yes Hx Anesthesia Reactions: No Hx Malignant Hyperthermia: No Meds Allergies/Adverse Reactions: Allergies Allergy/AdvReac Type Severity Reaction Status Date / Time No Known Allergies Allergy Verified 01/24/18 06:17 - Medications Medications: Current Medications Sodium Chloride (Sodium Chloride 0.9%) 1,000 mls @ 999 mls/hr IV .Q1H1M STA Stop: 01/24/18 09:45 Physical Exam - Constitutional Appears: No Acute Distress - Head Exam Head Exam: ATRAUMATIC, NORMOCEPHALIC - Eye Exam Eye Exam: EOMI, Normal appearance - ENT Exam ENT Exam: Mucous Membranes Moist - Respiratory Exam Respiratory Exam: NORMAL BREATHING PATTERN. absent: Respiratory Distress - Cardiovascular Exam Cardiovascular Exam: REGULAR RHYTHM. absent: Tachycardia - GI/Abdominal Exam GI & Abdominal Exam: Hernia, Soft, Tenderness (gabriel-umbilical hernia,). absent: Distended, Guarding, Rebound - Neurological Exam Neurological exam: Alert, Oriented x3 - Psychiatric Exam Psychiatric exam: Anxious - Skin Skin Exam: Dry, Warm Results - Vital Signs Recent Vital Signs: Last Vital Signs Temp 99 F 01/24/18 06:21 Pulse 96 H 01/24/18 06:21 Resp 16 01/24/18 06:21 BP 141/90 01/24/18 06:21 Pulse Ox 99 01/24/18 06:21 - Labs Result Diagrams: 01/24/18 06:30 01/24/18 06:30 Labs: Laboratory Results - last 24 hr 01/24/18 01/24/18 01/24/18 06:30 06:30 06:30 WBC 18.5 H D RBC 5.35 Hgb 12.0 Hct 37.7 MCV 70.5 L MCH 22.4 L MCHC 31.8 RDW 16.0 H Plt Count 550 H MPV 8.7 Gran % 92.3 H Lymph % (Auto) 5.7 L [place] % (Auto) 1.9 Eos % (Auto) 0.0 L Baso % (Auto) 0.1 Gran # 17.10 H Lymph # (Auto) 1.1 L [place] # (Auto) 0.4 Eos # (Auto) 0.0 Baso # (Auto) 0.02 Neutrophils % (Manual) 88 H Lymphocytes % (Manual) 10 L Monocytes % (Manual) 1 Basophils % (Manual) 1 Platelet Evaluation High PT 12.2 INR 1.06 APTT 26.8 pO2 VBG pH VBG pCO2 VBG HCO3 VBG Total CO2 VBG O2 Sat (Calc) VBG Base Excess VBG Potassium Glucose Lactate FiO2 Sodium 138 Potassium 3.7 Chloride 103 Carbon Dioxide 24 Anion Gap 14 BUN 9 Creatinine 0.7 Est GFR ( Amer) > 60 Est GFR (Non-Af Amer) > 60 Random Glucose 159 H Calcium 9.2 Magnesium 2.3 H Total Bilirubin 0.7 AST 40 H D ALT 33 Alkaline Phosphatase 114 Total Protein 8.9 H Albumin 4.5 Globulin 4.4 Albumin/Globulin Ratio 1.0 L Lipase 34 Venous Blood Potassium Urine Color Urine Appearance Urine pH Ur Specific [place] Urine Protein Urine Glucose (UA) Urine Ketones Urine Blood Urine Nitrate Urine Bilirubin Urine Urobilinogen Ur Leukocyte Esterase Urine RBC Urine WBC Ur Epithelial Cells Urine Bacteria Urine Other 01/24/18 01/24/18 07:10 08:00 WBC RBC Hgb Hct MCV MCH MCHC RDW Plt Count MPV Gran % Lymph % (Auto) [place] % (Auto) Eos % (Auto) Baso % (Auto) Gran # Lymph # (Auto) [place] # (Auto) Eos # (Auto) Baso # (Auto) Neutrophils % (Manual) Lymphocytes % (Manual) Monocytes % (Manual) Basophils % (Manual) Platelet Evaluation PT INR APTT pO2 37 VBG pH 7.40 VBG pCO2 41.0 VBG HCO3 25.4 VBG Total CO2 26.7 VBG O2 Sat (Calc) 74.1 H VBG Base Excess 0.5 VBG Potassium 3.6 Glucose 159 H Lactate 1.3 FiO2 21.0 Sodium 137.0 Potassium Chloride 102.0 Carbon Dioxide Anion Gap BUN Creatinine Est GFR ( Amer) Est GFR (Non-Af Amer) Random Glucose Calcium Magnesium Total Bilirubin AST ALT Alkaline Phosphatase Total Protein Albumin Globulin Albumin/Globulin Ratio Lipase Venous Blood Potassium 3.6 Urine Color Yellow Urine Appearance Clear Urine pH 6.0 Ur Specific [place] 1.025 Urine Protein 100 H Urine Glucose (UA) Negative Urine Ketones 40 H Urine Blood Moderate H Urine Nitrate Negative Urine Bilirubin Negative Urine Urobilinogen 1.0 H Ur Leukocyte Esterase Negative Urine RBC 15 - 20 Urine WBC 1 - 3 Ur Epithelial Cells 4 - 5 Urine Bacteria Many Urine Other Uyeast - Impressions Impression: CT scan: 01/23-> Assessment & Plan - Assessment and Plan (Free Text) Assessment: 37 y/o female w/ ventral hernia, possible obstruction, no reduced Plan: -repeat CT scan w/ PO contrast to r/o obstruction -pending results determine further surgical recommendations -NPO -IVF -pain control -zofran for nausea -patient seen and examined by Dr. Irma CHAMBERLAINadelita PGY4
[2018-01-24] MEDS ORDERED: Iohexol 240 (50 ml) ONE (11:14)
--- NOTE | 2018-01-24 13:54 | CT ---
Date of service: 01/24/2018 PROCEDURE: CT Abdomen and Pelvis without intravenous contrast HISTORY: abd pain COMPARISON: 01/23/2018 TECHNIQUE: Without contrast. Contrast dose: Radiation dose: Total exam DLP = 1033.26 mGy-cm. This CT exam was performed using one or more of the following dose reduction techniques: Automated exposure control, adjustment of the mA and/or kV according to patient size, and/or use of iterative reconstruction technique. FINDINGS: LOWER THORAX: Unremarkable. LIVER: Unremarkable. No gross lesion or ductal dilatation. GALLBLADDER AND BILE DUCTS: Gallbladder removed PANCREAS: Unremarkable. No gross lesion or ductal dilatation. SPLEEN: Unremarkable. ADRENALS: Unremarkable. No mass. KIDNEYS AND URETERS: Unremarkable. No hydronephrosis. No solid mass. VASCULATURE: Unremarkable. No aortic aneurysm. No aortic atherosclerotic calcification or mural plaque present. BOWEL: There are multiple mildly dilated loops of small bowel. This could represent ileus. There is a small umbilical hernia the contains fat and a small amount of fluid. There is no herniation of bowel loops. APPENDIX: Unremarkable. Normal appendix. PERITONEUM: Unremarkable. No free fluid. No free air. LYMPH NODES: Unremarkable. No enlarged lymph nodes. BLADDER: Unremarkable. REPRODUCTIVE: Unremarkable. BONES: No acute fracture. OTHER FINDINGS: None. IMPRESSION: There are multiple mildly dilated loops of small bowel. This could represent ileus. There is a small umbilical hernia that contains fat and a small amount of fluid. There is no herniation of bowel loops.
--- NOTE | 2018-01-24 15:03 | CP.PCM.PCO ---
Physician Communication Note - Physician Communication Note Physician Communication Note: CT reveiwed: no bowel in hernia post reduction. place in observation
[2018-01-24] MEDS ORDERED: Sodium Chloride 0.9% 1,000 ML IV SCH (15:15)
[2018-01-24] MEDS: Sodium Chloride 0.9% 1,000 ML IV SCH ×2 (15:32→21:11)
--- NOTE | 2018-01-24 19:09 | RAD ---
Date of service: 01/24/2018 HISTORY: comparison, progression of contrast COMPARISON: None available. FINDINGS: BOWEL: Nonobstructive bowel gas pattern. Faint oral contrast material seen throughout the colon which is mildly distended diffusely. No free intra peritoneal gas collection grossly evident. Spine erect series would be more sensitive for this however. Surgical clips are identified in the right upper quadrant abdomen once again. BONES: Normal. OTHER FINDINGS: None. IMPRESSION: Nonobstructive bowel gas pattern. Oral contrast identified throughout the large bowel faintly. No gross free intra peritoneal gas. Consider follow-up spine right abdomen radiographs if free intra peritoneal gas is suspected in particular.
[2018-01-25] MEDS: Sodium Chloride 0.9% 1,000 ML IV SCH (03:58)
[2018-01-25 07:37] LABS: BASO # 0.01 K/mm3 (0.0-2.0); BASO % 0.1 % (0.0-3.0); EOS # 0.1 (0.0-0.7); EOS % 0.6 % (1.5-5.0); GRAN # 11.01 (1.4-6.5); GRAN % 78.5 % (50.0-68.0); HEMOGLOBIN 10.1 g/dL (12.0-16.0); LYMPH # 2.2 (1.2-3.4); LYMPH % 15.7 % (22.0-35.0); MEAN CELL VOLUME 71.6 fl (80.0-105.0); MEAN CORPUSCULAR HEMOGLOBIN 21.7 pg (25.0-35.0); MEAN CORPUSCULAR HGB CONC 30.3 g/dl (31.0-37.0); MEAN PLATELET VOLUME 8.5 fl (7.0-11.0); MONO # 0.7 (0.1-0.6); MONO % 5.1 % (1.0-6.0); RBC 4.65 10^6/uL (3.5-6.1); RED CELL DISTRIBUTION WIDTH 16.3 % (11.5-14.5)
[2018-01-25 08:01] LABS: BLOOD UREA NITROGEN 6 mg/dL (7-21); CALCIUM 8.1 mg/dL (8.4-10.5); GFR NON-AFRICAN AMERICAN > 60
[2018-01-25] MEDS ORDERED: Propofol 10 mg/ml Inj (20 ML) ONE (08:59)
[2018-01-25] MEDS ORDERED: Midazolam 2 MG/2 ML VIAL ONE (08:59)
[2018-01-25] MEDS ORDERED: Glycopyrrolate 0.2 mg/ml (2ml vial) ONE (08:59)
[2018-01-25] MEDS ORDERED: Rocuronium 10 mg/ml (5 ml) ONE (09:00)
[2018-01-25] MEDS ORDERED: Neostigmine Methylsulfate 3mg/3ml Syringe IV ONE (09:00)
[2018-01-25] MEDS ORDERED: Succinylcholine 200 mg/10 ml Inj IV ONE (09:00)
--- NOTE | 2018-01-25 09:07 | CP.PCM.HP ---
History of Present Illness - History of Present Illness History of Present Illness: Surgery: Dr. Dumont covering for Dr. Solis Patient admitted for observation s/p reduction of ventral hernia, fat remains incarcerated on repeat CT scan however bowel successfully reduced. Obstructive symptoms resolved but remains to have pain at hernia site. See initial consult note for full details. PMH: , obese PSH: x2 (5+ years ago) Medications: denies Social: denies ETOH, tobacco, or drug abuse Present on Admission - Present on Admission Any Indicators Present on Admission: No Review of Systems - Review of Systems All systems: reviewed and no additional remarkable complaints except Review of Systems: unless stated in HPI Past Patient History - Infectious Disease Hx of Infectious Diseases: None - Tetanus Immunizations Tetanus Immunization: Unknown - Past Social History Smoking Status: Former Smoker - CARDIAC Hx Cardiac Disorders: No - PULMONARY Hx Respiratory Disorders: No - NEUROLOGICAL Hx Neurological Disorder: No - HEENT Hx HEENT Problems: No - RENAL Hx Chronic Kidney Disease: No - ENDOCRINE/METABOLIC Hx Endocrine Disorders: No - HEMATOLOGICAL/ONCOLOGICAL Hx Blood Disorders: No - INTEGUMENTARY Hx Dermatological Problems: No - MUSCULOSKELETAL/RHEUMATOLOGICAL Hx Falls: No - GASTROINTESTINAL Hx Gastrointestinal Disorders: No - GENITOURINARY/GYNECOLOGICAL Hx Genitourinary Disorders: No - PSYCHIATRIC Hx Psychophysiologic Disorder: No Hx Depression: No Hx Emotional Abuse: No Hx Physical Abuse: No Hx Substance Use: No - SURGICAL HISTORY Hx Surgeries: Yes (C section) - ANESTHESIA Hx Anesthesia: Yes Hx Anesthesia Reactions: No Hx Malignant Hyperthermia: No Meds Allergies/Adverse Reactions: Allergies Allergy/AdvReac Type Severity Reaction Status Date / Time No Known Allergies Allergy Verified 01/24/18 06:17 Physical Exam - Constitutional Appears: Non-toxic, No Acute Distress - Head Exam Head Exam: ATRAUMATIC, NORMOCEPHALIC - Eye Exam Eye Exam: EOMI, Normal appearance - ENT Exam ENT Exam: Mucous Membranes Moist - Respiratory Exam Respiratory Exam: NORMAL BREATHING PATTERN. absent: Respiratory Distress - Cardiovascular Exam Cardiovascular Exam: REGULAR RHYTHM. absent: Tachycardia - GI/Abdominal Exam GI & Abdominal Exam: Hernia (periumbilical/ventral tender), Soft, Tenderness Results - Vital Signs Recent Vital Signs: Last Vital Signs Temp 98.7 F 01/25/18 06:00 Pulse 80 01/25/18 06:00 Resp 20 01/25/18 06:00 BP 150/90 01/25/18 06:00 Pulse Ox 98 01/25/18 06:00 - Labs Result Diagrams: 01/25/18 07:00 01/25/18 07:00 Labs: Laboratory Results - last 24 hr 01/25/18 01/25/18 07:00 07:00 WBC 14.0 H D RBC 4.65 Hgb 10.1 L Hct 33.3 L MCV 71.6 L MCH 21.7 L MCHC 30.3 L RDW 16.3 H Plt Count 494 H MPV 8.5 Gran % 78.5 H Lymph % (Auto) 15.7 L [place] % (Auto) 5.1 Eos % (Auto) 0.6 L Baso % (Auto) 0.1 Gran # 11.01 H Lymph # (Auto) 2.2 [place] # (Auto) 0.7 H Eos # (Auto) 0.1 Baso # (Auto) 0.01 Sodium 138 Potassium 3.6 Chloride 107 Carbon Dioxide 24 Anion Gap 10 BUN 6 L Creatinine 0.6 L Est GFR ( Amer) > 60 Est GFR (Non-Af Amer) > 60 Random Glucose 98 Calcium 8.1 L Phosphorus 2.3 L Magnesium 2.2 Assessment & Plan - Assessment and Plan (Free Text) Assessment: 37 y/o female w/ incarcerated ventral hernia Plan: -for OR today -NPO -labs -IVFs -further recs per Dr. Dumont covering for Dr. Solis [facility] PGY4
[2018-01-25] MEDS: Bupivacaine 0.5% 50 ML IJ ONE ×2 (10:05→10:34)
[2018-01-25] MEDS ORDERED: HYDROmorphone 0.5 mg/0.5 ml ISec IVP PRN (10:43)
[2018-01-25] MEDS ORDERED: Lactated Ringer's 1,000 ML IV SCH (10:45)
--- NOTE | 2018-01-25 10:45 | PCM.SURG1 ---
Surgeon's Initial Post Op Note - Surgeon's Notes Surgeon: Dr. Dumont Operations Vice President: Dr. Israel PGY4 Type of Anesthesia: General Endo, Local Pre-Operative Diagnosis: incarcerated ventral incisional hernia Operative Findings: omental fat reduced, 1.5 cm fascial defect Post-Operative Diagnosis: same Operation Performed: open ventral incisional hernia repair, primary closure Specimen/Specimens Removed: hernia sac Estimated Blood Loss: EBL {In ML}: 10 Blood Products Given: N/A Drains Used: No Drains Post-Op Condition: Good Date of Surgery/Procedure: 01/25/18 Time of Surgery/Procedure: 10:45
[2018-01-25 11:30] VITALS: BP 153/84
[2018-01-25 17:11] VITALS: PULSE 92; RESP 20; TEMP 97.9; O2SAT 95
[2018-01-26] MEDS ORDERED: Enoxaparin 40 mg Syringe SC SCH (10:00)
--- NOTE | 2018-02-07 06:21 | OP ---
PROCEDURE DATE: 01/25/2018 PREOPERATIVE DIAGNOSIS: Incarcerated hernia. POSTOPERATIVE DIAGNOSIS: Incarcerated hernia. OPERATION PERFORMED: Umbilical herniorrhaphy. SURGEON: Rashaun Dumont MD PRESIDENT EDUCATIONAL INSTITUTION: Mindy Israel DO DESCRIPTION OF PROCEDURE: In the operating room, the patient was identified by name, name of procedure, and my keri. The abdomen was cleaned and dried, and the time-out was taken successfully. The wound was prepped with Betadine and after waiting three minutes, the abdomen was prepped and draped in the usual manner. A small transverse incision was made through the skin and the subcutaneous tissues, and the hernia sac was from the umbilicus without the skin. The hernia sac was followed to be the small fascial defect which barely would admit the finger. The hernia sac was removed. The incision was closed with direct suture of #1 mattress stitches. Three stitches were placed. We explored it. There was nothing untoward. The incision was then closed and using uniform tension, it was injected with Marcaine 30 mL of 0.5%. Subcutaneous tissue was closed by Vicryl followed by subcuticular PDS. Light dressing was applied. The patient was taken to recovery room in good condition after the sponge and needle counts was declared correct. Rashaun Dumont MD
== END 2018-01-25 16:41 | disposition home or self-care (01) | DRG 160 ==
LOC: ED 06:14 → ERH 15:04 → 5RSO 18:07 → OBSVTOIN 01-25 07:42
PROVIDERS: ADMIT General Practice; ATTEND General Practice
PROC: 0WQF0ZZ Repair Abdominal Wall, Open Approach (ICD-10-PCS; principal; 2018-01-25 09:30)
DX: K43.6 Other and unspecified ventral hernia with obstruction, without gangrene (principal); I51.7 Cardiomegaly; Z90.49 Acquired absence of other specified parts of digestive tract; Z98.891 History of uterine scar from previous surgery; F17.210 Nicotine dependence, cigarettes, uncomplicated

== ENCOUNTER 2018-02-05 08:38 | Emergency (ER) | payer MEDICAID ==
[2018-02-05 08:55] VITALS: BMI 51.5
--- NOTE | 2018-02-05 09:44 | ED PDOC ---
Arrival/HPI - General Chief Complaint: Abdominal Pain Historian: Patient - History of Present Illness Narrative History of Present Illness (Text): 02/05/18 09:34 A 37 year old female, whose past medical history includes section x 2 and cholecystectomy, presents to the emergency department complaining of surgical site bleed. Patient had a laproscopic umbilical hernia repair performed on 01/25/2018. Patient reports around 07:00, she was taking a shower, and upon touching surgical site, noticed a lot of bleeding, brownish liquid as described by patient. States after surgery on 01/25, "glue" was placed on site, instead of stitches. Patient went to see Dr. Dumont for evaluation and was told site was intact. Patient denies any constipation, abdominal pain, nausea, vomiting, diarrhea, fever, chills, cough, chest pain, shortness of breath, rash to site, or any other complaints at this time. Also, patient mentions having been told she is slightly anemic. Denies any history of hypertension, hyperlipidemia or diabetes. Takes no medications/antibiotics. PMD: Dr. Muñiz Past Medical History - Provider Review Nursing Documentation Reviewed: Yes - Infectious Disease Hx of Infectious Diseases: None - Tetanus Immunization Tetanus Immunization: Unknown - Past Medical History Past Medical History: No Previous - Cardiac Hx Cardiac Disorders: No - Pulmonary Hx Respiratory Disorders: No - Neurological Hx Neurological Disorder: No - HEENT Hx HEENT Disorder: No - Renal Hx Renal Disorder: No - Endocrine/Metabolic Hx Endocrine Disorders: No - Hematological/Oncological Hx Blood Disorders: No - Integumentary Hx Dermatological Disorder: No - Musculoskeletal/Rheumatological Hx Musculoskeletal Disorders: No - Gastrointestinal Hx Gastrointestinal Disorders: No - Genitourinary/Gynecological Hx Genitourinary Disorders: No - Psychiatric Hx Psychophysiologic Disorder: No Hx Depression: No Hx Emotional Abuse: No Hx Physical Abuse: No Hx Substance Use: No - Surgical History Hx Section: Yes (x2) Hx Cholecystectomy: Yes - Anesthesia Hx Anesthesia: Yes Hx Anesthesia Reactions: No Hx Malignant Hyperthermia: No - Suicidal Assessment Feels Threatened In Home Enviroment: No Family/Social History - Physician Review Nursing Documentation Reviewed: Yes Family/Social History: No Known Family HX Smoking Status: Light Smoker < 10 Cigarettes Daily Hx Alcohol Use: No Hx Substance Use: No Hx Substance Use Treatment: No Allergies/Home Meds Allergies/Adverse Reactions: Allergies No Known Allergies Allergy (Verified 02/05/18 08:55) Review of Systems - Physician Review All systems were reviewed & negative as marked: Yes - Review of Systems Constitutional: absent: Fevers, Night Sweats Eyes: absent: Vision Changes ENT: absent: Hearing Changes Respiratory: absent: SOB, Cough Cardiovascular: absent: Chest Pain, Palpitations Gastrointestinal: absent: Abdominal Pain, Stool Changes, Constipation, Diarrhea, Nausea, Vomiting, Appetite Changes, Hematochezia Genitourinary Female: absent: Dysuria, Frequency, Hematuria, Vaginal Bleeding, Vaginal Discharge Musculoskeletal: absent: Arthralgias, Back Pain Skin: Other (surgical site of hernia repair bleeding.). absent: Rash Neurological: absent: Headache, Dizziness Physical Exam Vital Signs Reviewed: Yes Vital Signs Temp Pulse Resp BP Pulse Ox 02/05/18 08:55 98.3 F 84 20 155/85 H 98 Temperature: Afebrile Blood Pressure: Normal Pulse: Regular Respiratory Rate: Normal Appearance: Positive for: Well-Appearing, Non-Toxic, Comfortable Pain Distress: None Mental Status: Positive for: Alert and Oriented X 3 - Systems Exam Head: Present: Atraumatic, Normocephalic Pupils: Present: PERRL Extroacular Muscles: Present: EOMI Conjunctiva: Present: Normal Mouth: Present: Moist Mucous Membranes Neck: Present: Normal Range of Motion. No: Meningeal Signs, MIDLINE TENDERNESS Respiratory/Chest: Present: Clear to Auscultation, Good Air Exchange. No: Respiratory Distress, Accessory Muscle Use Cardiovascular: Present: Regular Rate and Rhythm, Normal S1, S2. No: Murmurs Abdomen: No: Tenderness, Distention, Peritoneal Signs, Rebound, Guarding, McBurney's Point Tender Back: Present: Normal Inspection Upper Extremity: Present: Normal Inspection. No: Cyanosis, Edema Lower Extremity: Present: Normal Inspection. No: Edema Neurological: Present: GCS=15, CN II-XII Intact, Speech Normal Skin: Present: Other (noted drainage from umbilical laproscopic site, brown/red drainage, not pus-like, no foul odor, no crepitus) Psychiatric: Present: Alert, Oriented x 3, Normal Insight, Normal Concentration Medical Decision Making ED Course and Treatment: 02/05/18 09:37 Impression: 37 year old female with surgical site drainage. No erythema or crepitus. Non-ttp. No fever, chills or night sweats. No nausea / vomiting or constipation. No dark or bloody stool. Will seek surgical consult from Dr. Parsons team given drainage and recent surgery. Drainage non foul smelling. Plan: -- Labs -- Blood Culture -- Wound Culture -- Reassess and disposition Prior Visits: Notes and results from previous visits were reviewed. Patient was last seen in the emergency department on 01/24/2018 for persistent abdominal pain to periumbilical area with associated nausea and non-bloody and non-bilious emesis. Patient was admitted. Progress Notes: 02/05/18 11:31 appreciate consult w/ Dr. Parsons resident care director: pending labs can likely go home w/ abx: likely serous drainage from area. Pt in NAD agreeable to plan Pending labs. 02/05/18 12:16 Labs unremarkable. No elevated WBC. HGB improved. appreciate consult w/ Dr. Dumont: Clear for d/c home, keflex ok for abx, to f/u in 2d in office. Pt in NAD, agreeable to plan. Given return indications, followup and scripts. - Scribe Statement The provider has reviewed the documentation as recorded by the Kennedy Larios Provider Scribe Attestation: All medical record entries made by the Scribe were at my direction and personall y dictated by me. I have reviewed the chart and agree that the record accurately reflects my personal performance of the history, physical exam, medical decision making, and the department course for this patient. I have also personally directed, reviewed, and agree with the discharge instructions and disposition. Disposition/Present on Arrival - Present on Arrival Any Indicators Present on Arrival: No History of DVT/PE: No History of Uncontrolled Diabetes: No Urinary Catheter: No History of Decub. Ulcer: No History Surgical Site Infection Following: None - Disposition Have Diagnosis and Disposition been Completed?: Yes Diagnosis: Wound drainage Disposition: HOME/ ROUTINE Disposition Time: 12:17 Condition: GOOD Discharge Instructions (ExitCare): Wound Care Additional Instructions: TAKE THE ANTIBIOTICS DIRECTED. STOP TAKING AND COME BACK IF YOU HAVE AN ALLERGIC REACTION. SEE DOCTOR BILLY IN 2 DAYS. PANCHITO GOMES, thank you for letting us take care of you today. Your provider was Amaury Lewis and you were treated for SURG SITE BLEEDING. The emergency medical care you received today was directed at your acute symptoms. If you were prescribed any medication, please fill it and take as directed. It may take several days for your symptoms to resolve. Return to the Emergency Department if your symptoms worsen, do not improve, or if you have any other problems. Please contact your doctor or call one of the physicians/clinics you have been referred to that are listed on the Patient Visit Information form that is included in your discharge packet. Bring any paperwork you were given at discharge with you along with any medications you are taking to your follow up visit. Our treatment cannot replace ongoing medical care by a primary care provider outside of the emergency department. Thank you for allowing the [facility] team to be part of your care today. If you had an X-Ray or CT scan: A Radiologist will review the ED reading if any change in treatment is needed we will contact you. If you had a blood, urine, or wound culture: It will take several days for the results, if any change in treatment is needed we will contact you. If you had an STI test: It will take 48 hours for the results. Please call after 1 week if you have not heard back. Prescriptions: Cephalexin [cephalexin] 500 mg PO Q6H 5 Days #20 cap Referrals: Rashaun Dumont MD [Staff Provider] - Follow up with primary [facility] [Outside] - Follow up with primary [facility] [place] [Outside] - Follow up with primary Forms: [employer] (Libyan)
[2018-02-05 10:18] LABS: BASO # 0.03 K/mm3 (0.0-2.0); BASO % 0.3 % (0.0-3.0); EOS # 0.1 (0.0-0.7); GRAN # 7.24 (1.4-6.5); GRAN % 74.3 % (50.0-68.0); HEMOGLOBIN 10.6 g/dL (12.0-16.0); LYMPH # 1.7 (1.2-3.4); LYMPH % 17.5 % (22.0-35.0); MEAN CELL VOLUME 71.9 fl (80.0-105.0); MEAN CORPUSCULAR HEMOGLOBIN 22.2 pg (25.0-35.0); MEAN CORPUSCULAR HGB CONC 30.9 g/dl (31.0-37.0); MEAN PLATELET VOLUME 8.7 fl (7.0-11.0); MONO # 0.7 (0.1-0.6); MONO % 6.9 % (1.0-6.0); RBC 4.77 10^6/uL (3.5-6.1); RED CELL DISTRIBUTION WIDTH 15.9 % (11.5-14.5); WHITE BLOOD COUNT 9.8 10^3/uL (4.5-11.0)
--- NOTE | 2018-02-05 11:35 | CP.PCM.CON ---
History of Present Illness - History of Present Illness History of Present Illness: Surgery Consult Note- Dr. Dumont 37F pmhx significant for open ventral incisional hernia repair on 01/25/18 with no immediately complications post operatively, presents to [facility] after noticing dark red drainage from her umbilicus. Patient denies fevers, chills, nausea, vomiting, pain at the surgical site, acute skin changes. Of note patient followed up in clinic with Dr. Dumont yesterday, and at that time there was no drainage. Surgery was consulted for evaluation of the incision site. PMH: , obese PSH: Ventral incisional hernia repair w/ primary closure (2018), x2 (5+ years ago) Medications: denies Social: Occasional tobacco use, denies ETOH, or drug abuse Review of Systems - Review of Systems All systems: reviewed and no additional remarkable complaints except - Constitutional Constitutional: As Per HPI Past Patient History - Infectious Disease Hx of Infectious Diseases: None - Tetanus Immunizations Tetanus Immunization: Unknown - Past Social History Smoking Status: Light Smoker < 10 Cigarettes Daily - CARDIAC Hx Cardiac Disorders: No - PULMONARY Hx Respiratory Disorders: No - NEUROLOGICAL Hx Neurological Disorder: No - HEENT Hx HEENT Problems: No - RENAL Hx Chronic Kidney Disease: No - ENDOCRINE/METABOLIC Hx Endocrine Disorders: No - HEMATOLOGICAL/ONCOLOGICAL Hx Blood Disorders: No - INTEGUMENTARY Hx Dermatological Problems: No - MUSCULOSKELETAL/RHEUMATOLOGICAL Hx Musculoskeletal Disorders: No - GASTROINTESTINAL Hx Gastrointestinal Disorders: No - GENITOURINARY/GYNECOLOGICAL Hx Genitourinary Disorders: No - PSYCHIATRIC Hx Psychophysiologic Disorder: No Hx Depression: No Hx Emotional Abuse: No Hx Physical Abuse: No Hx Substance Use: No - SURGICAL HISTORY Hx Section: Yes (x2) Hx Cholecystectomy: Yes - ANESTHESIA Hx Anesthesia: Yes Hx Anesthesia Reactions: No Hx Malignant Hyperthermia: No Meds Allergies/Adverse Reactions: Allergies Allergy/AdvReac Type Severity Reaction Status Date / Time No Known Allergies Allergy Verified 02/05/18 08:55 Physical Exam - Constitutional Appears: Non-toxic, No Acute Distress - Head Exam Head Exam: ATRAUMATIC - Eye Exam Eye Exam: Scleral icterus. absent: EOMI - ENT Exam ENT Exam: Mucous Membranes Moist - Respiratory Exam Respiratory Exam: NORMAL BREATHING PATTERN. absent: Accessory Muscle Use, Respiratory Distress - Cardiovascular Exam Cardiovascular Exam: +S1, +S2. absent: Bradycardia, Tachycardia - GI/Abdominal Exam GI & Abdominal Exam: Soft. absent: Distended, Firm, Guarding, Hernia, Rebound, Rigid, Tenderness Additional comments: incision well healed dark serous drainage from incision site no palpable mass, or purulent drainage US showed no loculated fluid collections - Extremities Exam Extremities exam: Negative for: calf tenderness - Back Exam Back exam: absent: CVA tenderness (L), CVA tenderness (R) - Neurological Exam Neurological exam: Alert, Oriented x3 Results - Vital Signs Recent Vital Signs: Last Vital Signs Temp 98.3 F 02/05/18 08:55 Pulse 84 02/05/18 08:55 Resp 20 02/05/18 08:55 BP 155/85 H 02/05/18 08:55 Pulse Ox 98 02/05/18 08:55 - Labs Result Diagrams: 02/05/18 10:07 Labs: Laboratory Results - last 24 hr 02/05/18 10:07 WBC 9.8 D RBC 4.77 Hgb 10.6 L Hct 34.3 L MCV 71.9 L MCH 22.2 L MCHC 30.9 L RDW 15.9 H Plt Count 493 H MPV 8.7 Gran % 74.3 H Lymph % (Auto) 17.5 L Harding % (Auto) 6.9 H Eos % (Auto) 1.0 L Baso % (Auto) 0.3 Gran # 7.24 H Lymph # (Auto) 1.7 Harding # (Auto) 0.7 H Eos # (Auto) 0.1 Baso # (Auto) 0.03 Assessment & Plan - Assessment and Plan (Free Text) Assessment: 37F w/ ventral incisional hernia repair w/ primary closure on 01/25/18, w/ seroma Plan: - cleared for discharge home on Abx - follow up in office on Saturday w/ Dr. Dumont - no acute surgical intervention indicated at this time - discussed w/ Dr. Dumont surgical attending [facility] PGY2
[2018-02-05 11:39] VITALS: BP 152/83
[2018-02-05 12:05] LABS: ALB/GLOB RATIO 1.1 (1.1-1.8); ALBUMIN 4.3 g/dL (3.0-4.8); ALT/SGPT 35 U/L (7-56); AST/SGOT 23 U/L (14-36); BLOOD UREA NITROGEN 10 mg/dL (7-21); CALCIUM 9.3 mg/dL (8.4-10.5); GFR NON-AFRICAN AMERICAN > 60
[2018-02-05 13:14] VITALS: PULSE 73; RESP 19; TEMP 98; O2SAT 98
== END 2018-02-05 13:00 | disposition home or self-care (01) ==
LOC: ED 08:38
DX: T81.89XA Other complications of procedures, not elsewhere classified, initial encounter (principal); Y83.8 Other surgical procedures as the cause of abnormal reaction of the patient, or of later complication, without mention of misadventure at the time of the procedure; Y92.89 Other specified places as the place of occurrence of the external cause

== ENCOUNTER 2018-06-15 04:16 | Emergency (ER) | payer MEDICAID ==
[2018-06-15 04:16] VITALS: BMI 51.5
--- NOTE | 2018-06-15 04:37 | ED PDOC ---
Arrival/HPI - General Historian: Patient - History of Present Illness Narrative History of Present Illness (Text): Patient is a 37 year old female with PMH of incarcerated hernia s/p hernia repair, cholecystectomy presenting with chief complaint of vaginal bleeding that has been ongoing for a month. She has been using one to two pads per day however for the past day has been using one to two pads per hour. Patient denies any trauma. States a similar presentation happened two years prior which resolved with D&C. Admits to mild abdominal discomfort. Denies fevers, chills, chest pain, shortness of breath, diarrhea, dysuria. Time/Duration: > month Symptom Onset: Gradual Symptom Course: Worsening Context: Home <Arnulfo Pearce - Last Filed: 06/15/18 06:19> <Cesar Payton - Last Filed: 06/15/18 19:07> - General Chief Complaint: Female Genitourinary Past Medical History - Provider Review Nursing Documentation Reviewed: Yes - Infectious Disease Hx of Infectious Diseases: None - Tetanus Immunization Tetanus Immunization: Unknown - Past Medical History Past Medical History: No Previous - Cardiac Hx Cardiac Disorders: No - Pulmonary Hx Respiratory Disorders: No - Neurological Hx Neurological Disorder: No - HEENT Hx HEENT Disorder: No - Renal Hx Renal Disorder: No - Endocrine/Metabolic Hx Endocrine Disorders: No - Hematological/Oncological Hx Blood Disorders: No - Integumentary Hx Dermatological Disorder: No - Musculoskeletal/Rheumatological Hx Musculoskeletal Disorders: No - Gastrointestinal Hx Gastrointestinal Disorders: No - Genitourinary/Gynecological Hx Genitourinary Disorders: No - Psychiatric Hx Psychophysiologic Disorder: No Hx Depression: No Hx Emotional Abuse: No Hx Physical Abuse: No Hx Substance Use: No - Surgical History Hx Section: Yes (x2) Hx Cholecystectomy: Yes - Anesthesia Hx Anesthesia: Yes Hx Anesthesia Reactions: No Hx Malignant Hyperthermia: No - Suicidal Assessment Feels Threatened In Home Enviroment: No <Arnulfo Pearce - Last Filed: 06/15/18 06:19> Family/Social History - Physician Review Nursing Documentation Reviewed: Yes Family/Social History: No Known Family HX Smoking Status: Light Smoker < 10 Cigarettes Daily Hx Alcohol Use: No Hx Substance Use: No Hx Substance Use Treatment: No <Arnulfo Pearce - Last Filed: 06/15/18 06:19> Allergies/Home Meds <Arnulfo Pearce - Last Filed: 06/15/18 06:19> <FitoCesar - Last Filed: 06/15/18 19:07> Allergies/Adverse Reactions: Allergies No Known Allergies Allergy (Verified 06/15/18 04:28) Home Medications: Home Meds Medication Instructions Recorded Confirmed ALPRAZolam [Xanax] 0.25 mg PO TID PRN 06/15/18 06/15/18 Review of Systems - Physician Review All systems were reviewed & negative as marked: Yes - Review of Systems Respiratory: Normal Cardiovascular: Normal Gastrointestinal: Normal Genitourinary Female: Vaginal Bleeding <Arnulfo Pearce - Last Filed: 06/15/18 06:19> Physical Exam Vital Signs Reviewed: Yes Temperature: Afebrile Blood Pressure: Normal Pulse: Regular Respiratory Rate: Normal Appearance: Positive for: Well-Appearing, Comfortable Pain Distress: None Mental Status: Positive for: Alert and Oriented X 3 - Systems Exam Head: Present: Atraumatic, Normocephalic Extroacular Muscles: Present: EOMI Conjunctiva: Present: Normal Respiratory/Chest: Present: Clear to Auscultation, Good Air Exchange. No: Respiratory Distress, Accessory Muscle Use Cardiovascular: Present: Regular Rate and Rhythm, Normal S1, S2 Abdomen: Present: Normal Bowel Sounds. No: Tenderness, Distention Genitourinary/Pelvic Exam: Present: Normal External Genitalia, Vaginal Bleeding Lower Extremity: Present: Normal Inspection. No: Edema Neurological: Present: GCS=15, CN II-XII Intact, Speech Normal Skin: Present: Warm, Dry, Normal Color Psychiatric: Present: Alert, Oriented x 3, Normal Insight, Normal Concentration <Arnulfo Pearce - Last Filed: 06/15/18 06:19> Vital Signs Temp Pulse Resp BP Pulse Ox 06/15/18 04:28 98.2 F 95 H 18 149/81 98 <Cesar Payton - Last Filed: 06/15/18 19:07> Medical Decision Making ED Course and Treatment: Impression: 37 year old female with vaginal bleeding Plan: - CBC, CMP - b-hcg urine - urinalysis - Reassess and disposition Prior Visits: Notes and results from previous visits were reviewed. Progress Notes: Labs and imaging reviewed. Patient resting comfortably, hemodynamically stable. Patient agrees to follow up with [facility] and is in agreement with plan of management. - Lab Interpretations I have reviewed the lab results: Yes <Arnulfo Pearce - Last Filed: 06/15/18 06:19> ED Course and Treatment: Impression: Pt seen and evaluated with medical affairs director. Aware and agree with HPI, clinical findings, plan, and management. Pt, whose past medical history includes incarcerate hernia and cholecystectomy, presented for vaginal bleeding. Plan: -- Labs -- UA -- Reassess and disposition Progress Notes: <Cesar Payton - Last Filed: 06/15/18 19:07> - PA / UNEMPLOYMENT INSPECTOR / Resident Statement / has reviewed & agrees with the documentation as recorded. / has examined the patient and agrees with the treatment plan. <Cesar Payton - Last Filed: 06/15/18 19:07> Disposition/Present on Arrival - Present on Arrival Any Indicators Present on Arrival: No History of DVT/PE: No History of Uncontrolled Diabetes: No Urinary Catheter: No History Surgical Site Infection Following: None - Disposition Have Diagnosis and Disposition been Completed?: Yes Disposition Time: 06:19 <Arnulfo Pearce - Last Filed: 06/15/18 06:19> <Cesar Payton - Last Filed: 06/15/18 19:07> - Disposition Diagnosis: Vaginal bleeding Disposition: HOME/ ROUTINE Condition: STABLE Discharge Instructions (ExitCare): Heavy Periods (DC) Additional Instructions: Follow up with your [facility] within 3-5 days. Return to ED if symptoms worsen. Prescriptions: Conjugated Estrogens [Premarin] 0.3 mg PO DAILY #7 tab [facility] - Follow up with primary Forms: [employer] (Bulgarian)
[2018-06-15 04:40] VITALS: RESP 18; TEMP 98.2
[2018-06-15 05:15] LABS: BASO # 0.03 K/mm3 (0.0-2.0); BASO % 0.2 % (0.0-3.0); EOS # 0.1 (0.0-0.7); HEMOGLOBIN 9.5 g/dL (12.0-16.0); LYMPH # 2.6 (1.2-3.4); LYMPH % 20.6 % (22.0-35.0); MEAN CELL VOLUME 72.5 fl (80.0-105.0); MEAN CORPUSCULAR HEMOGLOBIN 21.9 pg (25.0-35.0); MEAN CORPUSCULAR HGB CONC 30.3 g/dl (31.0-37.0); MEAN PLATELET VOLUME 8.4 fl (7.0-11.0); MONO # 0.7 (0.1-0.6); MONO % 5.6 % (1.0-6.0); RBC 4.33 10^6/uL (3.5-6.1); RED CELL DISTRIBUTION WIDTH 15.7 % (11.5-14.5); WHITE BLOOD COUNT 12.5 10^3/uL (4.5-11.0)
[2018-06-15 05:32] LABS: ALB/GLOB RATIO 1.2 (1.1-1.8); ALBUMIN 4.1 g/dL (3.0-4.8); ALT/SGPT 12 U/L (7-56); AST/SGOT 28 U/L (14-36); BLOOD UREA NITROGEN 9 mg/dL (7-21); CALCIUM 8.7 mg/dL (8.4-10.5); GFR NON-AFRICAN AMERICAN > 60
[2018-06-15 05:34] LABS: PH,URINE 6.5 (4.7-8.0); URINE BILIRUBIN NEGATIVE (NEGATIVE); URINE BLOOD LARGE (NEGATIVE); URINE GLUCOSE (UA) NEGATIVE (NEGATIVE); URINE LEUKOCYTE ESTERASE TRACE Leu/uL (NEGATIVE); URINE PROTEIN 100 mg/dL (<30 mg/dL); URINE UROBILINOGEN 0.2 E.U./dL (<1 E.U./dL)
[2018-06-15 05:44] LABS: URINE APPEARANCE SL CLOUDY (CLEAR)
[2018-06-15 05:45] LABS: URINE COLOR LIGHT RED (YELLOW)
[2018-06-15 05:46] LABS: HCG,QUALITATIVE URINE NEGATIVE (NEGATIVE)
[2018-06-15 06:09] LABS: URINE RBC TNTC /hpf (0-2)
[2018-06-15 06:10] LABS: URINE BACTERIA FEW /hpf; URINE EPITHELIAL CELLS 0 - 2 /hpf (0-5)
[2018-06-15 07:01] VITALS: BP 125/78; PULSE 88; O2SAT 100
== END 2018-06-15 07:00 | disposition home or self-care (01) ==
LOC: ED 04:16
DX: N93.9 Abnormal uterine and vaginal bleeding, unspecified (principal)